=== PATIENT | male | born 1980 | race Caucasian/White ===

== ENCOUNTER 2016-11-01 16:14 | Emergency (ER) | payer OTHER | END 2016-11-01 17:14 | disposition home or self-care (01) | LOC: D.ER 16:14 | DX: T20.10XA Burn of first degree of head, face, and neck, unspecified site, initial encounter (principal); T31.0 Burns involving less than 10% of body surface; X11.8XXA Contact with other hot tap-water, initial encounter; Y93.89 Activity, other specified; Y92.019 Unspecified place in single-family (private) house as the place of occurrence of the external cause; F17.200 Nicotine dependence, unspecified, uncomplicated ==